=== PATIENT | male | born 1930 | race Caucasian/White ===

== ENCOUNTER 2016-06-08 10:11 | Inpatient (IN) | payer MEDICARE, BC ==
[2016-06-08 10:37] LABS: BASOPHILS % (AUTO) 1 % (0-3); EOSINOPHILS % (AUTO) 4 % (0-9); HEMATOCRIT 39 % (39-53); MEAN CORPUSCULAR HGB CONC 32.8 gm/dl (32.0-36.0); MEAN CORPUSCULAR VOLUME 94 fL (80-100); MONOCYTES % (AUTO) 12.1 % (0-12)
[2016-06-08 10:51] LABS: ALBUMIN 2.7 gm/dl (3.4-5.0); ALT 18 IU/L (14-63); CALCIUM 8.4 mg/dl (8.5-10.1); GLOM FILT RATE 88 mL/min (>60)
[2016-06-08 10:59] LABS: POTASSIUM 3.4 mMol/L (3.5-5.1); SODIUM 143 mMol/L (136-145)
[2016-06-08] MEDS ORDERED: LORAZEPAM 2 MG/ML SOL IV ONE ×2 (12:04→12:05)
[2016-06-08] MEDS ORDERED: LORAZEPAM 2 MG/ML SOL ONE (12:05)
[2016-06-08] MEDS: SODIUM CHLORIDE 0.9% FLUSH 10 ML SOL IV PRN ×2 (12:07→18:50)
[2016-06-08 12:10] LABS: APPEARANCE,URINE Slightly Cloudy; BILIRUBIN,URINE NEGATIVE (NEGATIVE); COLOR,URINE Yellow; GLUCOSE, URINE (UA) NEGATIVE (NEGATIVE); KETONES,URINE NEGATIVE (NEGATIVE); LEUKOCYTE ESTERASE ,URINE NEGATIVE (NEGATIVE); NITRATE,URINE NEGATIVE (NEGATIVE); OCCULT BLOOD,URINE TRACE INTACT (NEG-TRACE); PH,URINE 6.5; UROBILINOGEN,URINE 0.2 (0.2-1.0 EU)
[2016-06-08 12:31] LABS: RBC,URINE 0-2 (0-3AV/HPF); WBC,URINE 0-2 (0-5AV/HPF)
[2016-06-08] MEDS ORDERED: ENOXAPARIN 40 MG SOL SC SCH (13:45)
[2016-06-08] MEDS: LORAZEPAM 2 MG/ML SOL IV PRN (14:54)
[2016-06-08] MEDS: SODIUM CHLORIDE 0.9% FLUSH 10 ML SOL IV SCH ×2 (14:55→22:38)
[2016-06-08] MEDS: NICOTINE 21 MG PATCH TD SCH (18:26)
[2016-06-08] MEDS ORDERED: MORPHINE SULFATE 10 MG/ML SOL ONE (18:45)
[2016-06-08] MEDS: MORPHINE SULFATE 10 MG/ML SOL IV PRN (18:49)
[2016-06-09] MEDS: SODIUM CHLORIDE 0.9% FLUSH 10 ML SOL IV SCH ×4 (06:18→22:11)
[2016-06-09] MEDS: TRAMADOL HYDROCHLORIDE 50 MG TAB PO PRN ×2 (14:10→20:43)
[2016-06-09] MEDS ORDERED: MORPHINE SULFATE 10 MG/ML SOL ONE ×2 (16:04→20:36)
[2016-06-09] MEDS: LORAZEPAM 2 MG/ML SOL IV PRN ×3 (16:25→21:40)
[2016-06-09] MEDS: NICOTINE 21 MG PATCH TD SCH (16:32)
[2016-06-09] MEDS: MORPHINE SULFATE 10 MG/ML SOL IV PRN (20:41)
[2016-06-09] MEDS: SODIUM CHLORIDE 0.9% FLUSH 10 ML SOL IV PRN (21:41)
[2016-06-09] MEDS ORDERED: SODIUM CHLORIDE 0.9% 1000ML 1,000 ML IV ONE (22:31)
[2016-06-09] MEDS: FENTANYL 12 MCG PATCH TDM TD SCH (22:40)
[2016-06-10] MEDS ORDERED: MORPHINE SULFATE 10 MG/ML SOL ONE ×2 (01:57→23:19)
[2016-06-10] MEDS: MORPHINE SULFATE 10 MG/ML SOL IV PRN ×2 (02:09→23:20)
[2016-06-10] MEDS: SODIUM CHLORIDE 0.9% FLUSH 10 ML SOL IV PRN ×4 (02:10→23:20)
[2016-06-10] MEDS: DEXTROSE/SALINE 0.45/KCL 20MEQ 1,000 ML/1,000 ML SOL IV SCH ×2 (02:55→12:44)
[2016-06-10] MEDS: TRAMADOL HYDROCHLORIDE 50 MG TAB PO SCH ×4 (02:59→21:14)
[2016-06-10] MEDS: LORAZEPAM 2 MG/ML SOL IV PRN ×4 (05:35→21:43)
[2016-06-10] MEDS: SODIUM CHLORIDE 0.9% FLUSH 10 ML SOL IV SCH ×3 (06:27→21:46)
[2016-06-10] MEDS: NICOTINE 21 MG PATCH TD SCH (15:51)
[2016-06-10] MEDS ORDERED: SODIUM CHLORIDE 0.9% 1000ML 1,000 ML IV ONE (21:00)
[2016-06-11] MEDS ORDERED: MORPHINE SULFATE 10 MG/ML SOL ONE (03:54)
[2016-06-11] MEDS: TRAMADOL HYDROCHLORIDE 50 MG TAB PO SCH ×2 (03:59→08:45)
[2016-06-11] MEDS: MORPHINE SULFATE 10 MG/ML SOL IV PRN (04:00)
[2016-06-11] MEDS: SODIUM CHLORIDE 0.9% FLUSH 10 ML SOL IV SCH ×3 (05:17→21:56)
[2016-06-11] MEDS ORDERED: ALBUTEROL/IPRATROPIUM 1 VIAL SOL INH PRN (08:20)
[2016-06-11] MEDS ORDERED: TRAMADOL HYDROCHLORIDE 50 MG TAB PO PRN (10:55)
[2016-06-11] MEDS ORDERED: BISACODYL 10 MG SUP PR PRN (13:31)
[2016-06-11] MEDS: ALBUTEROL/IPRATROPIUM 1 VIAL SOL INH SCH ×2 (13:53→21:56)
[2016-06-11] MEDS: SOLUMEDROL 125 MG/2 ML 125 MG/2 ML PDS IV SCH ×2 (14:03→21:55)
[2016-06-11] MEDS: MORPHINE SULFATE 20 MG/1 ML SOL PO PRN ×2 (15:44→22:04)
[2016-06-11] MEDS: NICOTINE 21 MG PATCH TD SCH (18:40)
[2016-06-11] MEDS: LEVETIRACETAM 250 MG TAB PO SCH (21:58)
[2016-06-11] MEDS: LORAZEPAM 0.5 MG TAB PO PRN (23:06)
[2016-06-12] MEDS: ALBUTEROL/IPRATROPIUM 1 VIAL SOL INH SCH ×4 (02:47→21:08)
[2016-06-12] MEDS: MORPHINE SULFATE 20 MG/1 ML SOL PO PRN (03:56)
[2016-06-12] MEDS: LORAZEPAM 0.5 MG TAB PO PRN ×2 (04:47→22:04)
[2016-06-12] MEDS: SOLUMEDROL 125 MG/2 ML 125 MG/2 ML PDS IV SCH (04:50)
[2016-06-12] MEDS: SODIUM CHLORIDE 0.9% FLUSH 10 ML SOL IV SCH ×3 (04:50→21:11)
[2016-06-12 07:43] LABS: BASOPHILS % (AUTO) 1 % (0-3); EOSINOPHILS % (AUTO) 0 % (0-9); HEMATOCRIT 33 % (39-53); MEAN CORPUSCULAR VOLUME 95 fL (80-100); MONOCYTES % (AUTO) 2.6 % (0-12); NEUTROPHILS % (AUTO) 94.3 % (37-80)
[2016-06-12 08:00] LABS: CALCIUM 8.9 mg/dl (8.5-10.1); POTASSIUM 3.8 mMol/L (3.5-5.1)
[2016-06-12] MEDS ORDERED: FLEET ENEMA PR PRN (08:06)
[2016-06-12] MEDS: LEVETIRACETAM 250 MG TAB PO SCH ×2 (08:57→21:11)
[2016-06-12] MEDS: PREDNISONE 20 MG TAB PO SCH (08:57)
[2016-06-12] MEDS: DOXYCYCLINE 100 MG TAB PO SCH ×2 (18:19→21:11)
[2016-06-12] MEDS: NICOTINE 21 MG PATCH TD SCH (18:20)
[2016-06-12] MEDS: FENTANYL 12 MCG PATCH TDM TD SCH (21:52)
[2016-06-13] MEDS: ALBUTEROL/IPRATROPIUM 1 VIAL SOL INH SCH ×4 (04:22→20:57)
[2016-06-13] MEDS: SODIUM CHLORIDE 0.9% FLUSH 10 ML SOL IV SCH ×5 (04:28→20:47)
[2016-06-13] MEDS: LORAZEPAM 0.5 MG TAB PO PRN (04:38)
[2016-06-13 08:20] LABS: BASOPHILS % (AUTO) 1 % (0-3); EOSINOPHILS % (AUTO) 0 % (0-9); HEMATOCRIT 35 % (39-53); MEAN CORPUSCULAR HGB CONC 33.6 gm/dl (32.0-36.0); MEAN CORPUSCULAR VOLUME 95 fL (80-100); MONOCYTES % (AUTO) 3.6 % (0-12); NEUTROPHILS % (AUTO) 88.7 % (37-80)
[2016-06-13 08:21] LABS: CALCIUM 8.9 mg/dl (8.5-10.1); POTASSIUM 3.6 mMol/L (3.5-5.1)
[2016-06-13] MEDS: SODIUM CHLORIDE 0.45% 1000 ML 1,000 ML with POTASSIUM CHLORIDE 2 MEQ/ML 20 MEQ IV SCH ×3 (08:48→22:42)
[2016-06-13] MEDS ORDERED: POTASSIUM CHLORIDE 2 MEQ/ML SOL IV ONE ×3 (08:51→22:35)
[2016-06-13] MEDS: DOXYCYCLINE 100 MG TAB PO SCH ×2 (09:02→20:44)
[2016-06-13] MEDS: METFORMIN HYDROCHLORIDE 500 MG TAB PO SCH (09:03)
[2016-06-13] MEDS: SENNOSIDES A AND B 8.6 MG TAB PO SCH ×2 (09:04→20:44)
[2016-06-13] MEDS: MAGNESIUM HYDROXIDE 30 ML SUS PO SCH ×2 (09:04→20:44)
[2016-06-13] MEDS: PREDNISONE 20 MG TAB PO SCH (09:04)
[2016-06-13] MEDS: LEVETIRACETAM 250 MG TAB PO SCH ×2 (09:06→20:44)
[2016-06-13] MEDS: VALSARTAN PO SCH (12:37)
[2016-06-13] MEDS: HCTZ PO SCH (12:37)
[2016-06-13] MEDS: NICOTINE 21 MG PATCH TD SCH (20:43)
[2016-06-14] MEDS: ALBUTEROL/IPRATROPIUM 1 VIAL SOL INH SCH ×2 (00:32→06:40)
[2016-06-14] MEDS ORDERED: POTASSIUM CHLORIDE 2 MEQ/ML SOL IV ONE (05:26)
[2016-06-14] MEDS: SODIUM CHLORIDE 0.45% 1000 ML 1,000 ML with POTASSIUM CHLORIDE 2 MEQ/ML 20 MEQ IV SCH ×2 (05:45→11:48)
[2016-06-14] MEDS: SODIUM CHLORIDE 0.9% FLUSH 10 ML SOL IV SCH (06:09)
[2016-06-14 07:17] VITALS: BP 178/93; PULSE 84; RESP 22; TEMP 97.6; O2SAT 90
[2016-06-14] MEDS: DOXYCYCLINE 100 MG TAB PO SCH (08:57)
[2016-06-14] MEDS: VALSARTAN PO SCH (08:57)
[2016-06-14] MEDS: HCTZ PO SCH (08:57)
[2016-06-14] MEDS: LEVETIRACETAM 250 MG TAB PO SCH (08:58)
[2016-06-14] MEDS: MAGNESIUM HYDROXIDE 30 ML SUS PO SCH (08:59)
[2016-06-14] MEDS: PREDNISONE 20 MG TAB PO SCH (08:59)
[2016-06-14] MEDS: METFORMIN HYDROCHLORIDE 500 MG TAB PO SCH (08:59)
[2016-06-14] MEDS: SENNOSIDES A AND B 8.6 MG TAB PO SCH (09:00)
[2016-06-14] MEDS ORDERED: FOLIC ACID 1 MG TAB PO SCH (10:00)
== END 2016-06-14 13:00 | DRG 66 ==
LOC: ED 10:11 → UNDOADMIN 12:22 → ACUTE CARE 12:22
PROVIDERS: ADMIT Family Medicine; ATTEND Family Medicine
PROC: F01ZDFZ Gait and/or Balance Assessment using Assistive, Adaptive, Supportive or Protective Equipment (ICD-10-PCS; principal; 2016-06-09)
PROC: F01ZBZZ Bed Mobility Assessment (ICD-10-PCS; 2016-06-09)
PROC: F01ZCZZ Transfer Assessment (ICD-10-PCS; 2016-06-09)
PROC: F02Z1ZZ Dressing Assessment (ICD-10-PCS; 2016-06-09)
PROC: F02Z0ZZ Bathing/Showering Assessment (ICD-10-PCS; 2016-06-09)
PROC: F02Z3ZZ Grooming/Personal Hygiene Assessment (ICD-10-PCS; 2016-06-09)
DX: I63.6 Cerebral infarction due to cerebral venous thrombosis, nonpyogenic (principal); J44.1 Chronic obstructive pulmonary disease with (acute) exacerbation; R56.9 Unspecified convulsions; J44.9 Chronic obstructive pulmonary disease, unspecified; E11.9 Type 2 diabetes mellitus without complications; R47.01 Aphasia; R29.810 Facial weakness; R29.725 NIHSS score 25; Z72.0 Tobacco use; R52 Pain, unspecified; K59.00 Constipation, unspecified
CPT/HCPCS: 36415; 51798; 70460; 70544; 70551; 71010; 73560; 80048; 80053; 81001; 82962; 83880; 84484; 85025; 93005; 94640; 94760; 96374; 99291; J1650; J2060; J2270; J2930; J3480; J7620; A6232

== ENCOUNTER 2016-06-23 20:21 | Observation (INO) | payer MEDICARE, BC ==
[2016-06-23 20:58] LABS: BASOPHILS % (AUTO) 1 % (0-3); EOSINOPHILS % (AUTO) 1 % (0-9); HEMATOCRIT 23 % (39-53); MEAN CORPUSCULAR HGB CONC 32.3 gm/dl (32.0-36.0); MEAN CORPUSCULAR VOLUME 98 fL (80-100); MONOCYTES % (AUTO) 4.8 % (0-12); NEUTROPHILS % (AUTO) 83.4 % (37-80)
[2016-06-23] MEDS ORDERED: SODIUM CHLORIDE 0.9% 1000ML 1,000 ML IV SCH (21:00)
[2016-06-23] MEDS ORDERED: MORPHINE SULFATE 10 MG/ML SOL IV ONE (21:10)
[2016-06-23] MEDS ORDERED: MORPHINE SULFATE 10 MG/ML SOL ONE (21:11)
[2016-06-23 21:20] LABS: ALBUMIN 2.1 gm/dl (3.4-5.0); CALCIUM 8.5 mg/dl (8.5-10.1); THYROID STIMULATING HORMONE 4.061 uIU/ml (0.358-3.740)
[2016-06-24] MEDS ORDERED: MORPHINE SULFATE 10 MG/ML SOL IV PRN (00:06)
[2016-06-24] MEDS ORDERED: LORAZEPAM 2 MG/ML SOL IV PRN (00:10)
[2016-06-24] MEDS ORDERED: DEXTROSE/SALINE 0.45/KCL 20MEQ 1,000 ML/1,000 ML SOL IV SCH (00:15)
[2016-06-24] MEDS ORDERED: FENTANYL 12 MCG PATCH TDM TD SCH ×2 (00:15→06:00)
[2016-06-24 00:31] VITALS: TEMP 97.2
[2016-06-24 00:40] VITALS: BP 60/40
[2016-06-24 05:48] VITALS: PULSE 40; RESP 20; O2SAT 64
[2016-06-24] MEDS ORDERED: NICOTINE 7 MG PATCH TD SCH ×2 (09:00→18:00)
[2016-06-24] MEDS ORDERED: PANTOPRAZOLE SODIUM 40 MG/10 ML PDS IV SCH (09:00)
== END 2016-06-24 06:10 | disposition expired | DRG 301 ==
LOC: ED 20:21 → ACUTE CARE 23:27
PROVIDERS: ADMIT Family Medicine; ATTEND Family Medicine
DX: I71.02 Dissection of abdominal aorta (principal)
CPT/HCPCS: 36415; 80053; 82150; 84443; 85025; 85378; 96365; 99219; 99285; J2060; J2270